=== PATIENT | male | born 1995 | race Hispanic/Latino ===

== ENCOUNTER → 2022-01-17 | Outpatient (CLI) | payer SELFPAY | LOC: M RAD 11:11 | PROVIDERS: ATTEND Physician Assistant | DX: N50.82 Scrotal pain (principal) ==

== ENCOUNTER → 2023-01-15 | Outpatient (REF) | payer SELFPAY ==
[2023-01-15 20:25] LABS: GC DNA AMPLIFICATION NEGATIVE (NEGATIVE)
== END ==
LOC: M LAB REF 16:07
PROVIDERS: ATTEND Physician Assistant
DX: R30.0 Dysuria (principal)

== ENCOUNTER → 2023-10-15 | Outpatient (CLI) | payer SELFPAY ==
[2023-10-15 18:27] LABS: Trichomonas vaginalis (AMP) NOT DETECTED (NEGATIVE)
[2023-10-15 18:33] LABS: HIV 1&2 SCREEN NEGATIVE (NEGATIVE)
[2023-10-15 18:49] LABS: GC DNA AMPLIFICATION NEGATIVE (NEGATIVE)
[2023-10-20 13:38] LABS: HSV 1 IGG TYPE SPECIFIC < 0.90 index (<0.90); HSV 2 IGG TYPE SPECIFIC < 0.90 index (<0.90)
== END ==
LOC: M WUC 12:47
PROVIDERS: ATTEND Student in an Organized Health Care Education/Training Program
DX: R30.0 Dysuria (principal)